=== PATIENT | male | born 1995 | race Caucasian/White ===

== ENCOUNTER 2018-10-19 17:05 | Emergency (ER) | payer OTHER ==
--- NOTE | 2018-10-19 17:59 | EDM.PDOC ---
ED HPI GENERAL MEDICAL PROBLEM - General Chief Complaint: Lower Extremity Injury/Pain Stated Complaint: L ANKLE INJURY Time Seen by Provider: 10/19/18 17:15 Source of Information: Reports: Patient, RN Notes Reviewed History Limitations: Reports: No Limitations - History of Present Illness INITIAL COMMENTS - FREE TEXT/NARRATIVE: The patient states that he slipped on ice when getting out of his pickup truck around 17:30, falling to the ground and twisting his left ankle. He presents with pain to his anterolateral left ankle. The patient states that he was on the job when he fell. The patient states that he has broken his ankle 4-5 times in the past, as a child, although all the fractures were due to significant trauma, such as with football. No prior orthopedic surgery. 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 He states that his job involves chasing cattle around, and when he drives the truck, he needs to use the clutch with his left foot. The patient does not have a PCP. Left Ankle Pain Score (Numeric/FACES): 7 - Related Data Allergies Allergy/AdvReac Type Severity Reaction Status Date / Time No Known Allergies Allergy Verified 10/19/18 17:15 Home Meds: Home Meds . [No Known Home Meds] 10/19/18 [History] Past Medical History Endocrine/Metabolic History: Reports: Obesity/BMI 30+ - Past Surgical History HEENT Surgical History: Reports: Adenoidectomy, Oral Surgery (wisdom teeth extraction), Tonsillectomy Social & Family History - Tobacco Use Smoking Status *Q: Current Every Day Smoker Years of Tobacco use: 5 Packs/Tins Daily: 1 Packs/Tins Daily Comment: Down from 1.5 ppd - Caffeine Use Caffeine Use: Reports: Coffee - Alcohol Use Alcohol Use History: Yes Alcohol Use Frequency: Socially - Recreational Drug Use Recreational Drug Use: No - Living Situation & Occupation Living situation: Reports: , with Significant Other (Girlfriend) 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 ED EXAM, GENERAL - Physical Exam Exam: See Below Exam Limited By: No Limitations General Appearance: Alert, WD/WN, No Apparent Distress Extremities: Other (Mild swelling to the lateral aspect of the patient's ankle. He reports substantial tenderness to even light palpation along the anterolateral foot and ankle. There is some tenderness to the anterior syndesmosis, but no tenderness to the posterior syndesmosis or medial ankle. Good dorsalis pedis and posterior tibialis pulses on the left. Neurovascular status of the left lower extremity is intact.) Course - Vital Signs Last Recorded V/S: Last Vital Signs Temp 36.6 C 10/19/18 17:13 Pulse 90 10/19/18 17:19 Resp 18 10/19/18 17:19 BP 129/82 10/19/18 17:19 Pulse Ox 98 10/19/18 17:19 - Orders/Labs/Meds Orders: Active Orders 24 hr Category Date Time Status Ankle Min 3V Lt [CR] Stat Exams 10/19/18 17:15 Taken DME for Discharge [COMM] Stat Oth 10/19/18 18:08 Ordered DME for Discharge [COMM] Stat Oth 10/19/18 18:09 Ordered - Re-Assessments/Exams Free Text/Narrative Re-Assessment/Exam: 10/19/18 17:49 4-view radiographs of the left ankle appear to be grossly normal. No fracture or dislocation identified. No old fracture lines identified, either. Formal read per the Radiologist pending. 10/19/18 18:05 X-ray results discussed with the patient. Clinically, he has a grade 1 sprain. We will see if we can fit him with a ankle stirrup, although he is physically quite large, and our stirrups probably won't fit him. I'm recommending that he abstain from work for the next couple of days, and during that time he should ice and elevate his ankle area and he should take [id number] ibuprofen as needed for discomfort. I would like him to follow-up with Dr. Miller, to occupational health, this coming 10/21/2018, although the patient states that he lives in [place], and he may not follow-up until Wednesday. Alternatively, he could follow-up with someone in [place], which would likely be a lot easier. He stated that he does not need a note for work. Departure - Departure Time of Disposition: 18:08 Disposition: Home, Self-Care 01 Condition: Fair Clinical Impression: Left ankle sprain - Discharge Information *PRESCRIPTION DRUG MONITORING PROGRAM REVIEWED*: Not Applicable *COPY OF PRESCRIPTION DRUG MONITORING REPORT IN PATIENT CHARMAINE: Not Applicable Instructions: Ankle Sprain Referrals: Leonard Miller MD [Physician] - Forms: ED Department Discharge Additional Instructions: You were seen in the emergency room after slipping on ice and twisting her left ankle. Workup in the ER included x-rays of your left ankle, which returned normal. You have not broken your ankle. You have been fitted with an ankle stirrup. Apply this each morning, and remove at bedtime. You have also been fitted with crutches. We recommend that you stay home from work for the next 2 days, in order to ice and elevate your left ankle as much as possible. Take [id number] ibuprofen, 3-4 tablets (600-800 mg) every 8 hours, with food, as needed for discomfort. Follow-up with Dr. Miller from Occupational Medicine, or your own provider, this coming 10/21/2018. If any other problems, please do not hesitate to return to the ER. - My Orders Last 24 Hours: My Active Orders 10/19/18 17:15 Ankle Min 3V Lt [CR] Stat 10/19/18 18:08 DME for Discharge [COMM] Stat 10/19/18 18:09 DME for Discharge [COMM] Stat - Assessment/Plan Last 24 Hours: My Active Orders 10/19/18 17:15 Ankle Min 3V Lt [CR] Stat 10/19/18 18:08 DME for Discharge [COMM] Stat 10/19/18 18:09 DME for Discharge [COMM] Stat
--- NOTE | 2018-10-20 06:36 | CR ---
Left ankle: Four views of the left ankle were obtained. Mild soft tissue swelling is noted. Ankle mortise is symmetric. No discrete fracture, dislocation or other bony abnormality is seen. Impression: 1. Mild soft tissue swelling. No acute bony abnormality is appreciated. Diagnostic code #2
== END 2018-10-19 18:19 | disposition home or self-care (01) ==
LOC: JD.ED 17:05
DX: S93.402A Sprain of unspecified ligament of left ankle, initial encounter (principal); W00.0XXA Fall on same level due to ice and snow, initial encounter; E66.9 Obesity, unspecified; F17.210 Nicotine dependence, cigarettes, uncomplicated; X50.1XXA Overexertion from prolonged static or awkward postures, initial encounter
CPT/HCPCS: 73610-26-LT; 73610-LT; 99284